=== PATIENT | female | born 2000 | race Hispanic/Latino ===

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

== ENCOUNTER 2025-01-20 12:38 | Emergency (ER) | payer BC, OTHER ==
[~2025-01-20] VITALS: Ht 162.6 cm; Wt 117.9 kg
[2025-01-20 12:43] VITALS: TEMP 97.7
[2025-01-20] MEDS ORDERED: TRAZODONE HCL100 MG PO (13:13)
[2025-01-20 13:30] VITALS: PULSE 78; RESP 16; O2SAT 98
== END 2025-01-20 13:30 | disposition home or self-care (01) ==
LOC: ER 12:55
DX: G47.00 Insomnia, unspecified (principal); F41.9 Anxiety disorder, unspecified
CPT/HCPCS: 99283